=== PATIENT | female | born 1945 | race Caucasian/White ===

== ENCOUNTER 2020-12-02 10:03 | Outpatient (CLI) | payer MEDICARE, BC ==
[2020-12-02] MEDS ORDERED: NITR100C PO (10:36)
[2020-12-02] MEDS ORDERED: SPIR50TA4 PO (10:36)
[2020-12-02] MEDS ORDERED: GABA100C PO (10:36)
[2020-12-02] MEDS ORDERED: FOLI-17 PO (10:36)
[2020-12-02] MEDS ORDERED: AMLO-150 PO (10:36)
[2020-12-02 12:35] LABS: BASOPHILS % (AUTO) 1 % (0-1); EOSINOPHILS % (AUTO) 2 % (1-7); LYMPHOCYTES % (AUTO) 15 % (22-44); MEAN CORPUSCULAR HEMOGLOBIN 32.3 pg (27.0-34.8); MEAN CORPUSCULAR HGB CONC 33.7 g/dL (32.4-35.8); MEAN PLATELET VOLUME 9.7 fL (7.4-10.4); MONOCYTES % (AUTO) 9 % (2-9); NEUTROPHILS % (AUTO) 73 % (42-75); PLATELET COUNT 217 x10^3/uL (130-400); RED BLOOD COUNT 4.87 x10^6/uL (3.82-5.3); RED CELL DISTRIBUTION WIDTH 12.8 % (9.6-15.2)
[2020-12-02 12:40] LABS: INTERNATIONAL NORMALIZED RATIO 0.95 (0.93-1.1); PROTHROMBIN TIME 10.1 Seconds (9.6-11.5)
[2020-12-02 12:42] LABS: MD NO
[2020-12-02 12:44] LABS: ALANINE AMINOTRANSFERASE 32 U/L (12-78); ALBUMIN 4.2 g/dL (3.4-5.0); ANION GAP 3 mmol/L (5-15); CHLORIDE 104 mmol/L (98-107); CREATININE 1.94 mg/dL (0.55-1.02)
[2020-12-02 12:46] LABS: ALKALINE PHOSPHATASE 97 U/L (45-117); BILIRUBIN,TOTAL 0.4 mg/dL (0.2-1.0); TOTAL PROTEIN 7.4 g/dL (6.4-8.2)
[2020-12-02 13:41] LABS: MICROSCOPIC INDICATED
== END 2020-12-02 23:59 | disposition home or self-care (01) ==
LOC: STAR 10:03
PROVIDERS: ATTEND Urology
DX: Z01.812 Encounter for preprocedural laboratory examination (principal); Z20.828 Contact with and (suspected) exposure to other viral communicable diseases; N32.9 Bladder disorder, unspecified; R43.1 Parosmia; I44.7 Left bundle-branch block, unspecified
CPT/HCPCS: 80053; 81001; 85025; 85610; 87086; 87635; 93005

== ENCOUNTER 2020-12-08 13:33 | Day surgery (SDC) | payer MEDICARE, BC ==
[~2020-12-08] VITALS: Ht 162.6 cm; Wt 80.0 kg
[~2020-12-08 13:33] MED LIST: AMLO-150 PO; FOLI-17 PO; GABA100C PO; NITR100C PO; SPIR50TA4 PO
[2020-12-08] MEDS ORDERED: CHLORHEXIDINE 15 ML UDC ONE (14:07)
[2020-12-08] MEDS ORDERED: CEFAZOLIN 1,000 MG ONE (14:29)
[2020-12-08] MEDS ORDERED: ONDANSETRON 2MG/ML, 2ML ONE (14:29)
[2020-12-08] MEDS ORDERED: PROPOFOL 10 MG/ML, 20ML ONE (14:29)
[2020-12-08] MEDS ORDERED: FENTANYL PF 250 MCG/5ML ONE (14:29)
[2020-12-08] MEDS ORDERED: SODIUM CHLORIDE 0.9% 1,000 ML IV SCH ×2 (14:30)
[2020-12-08] MEDS ORDERED: LACTATED RINGERS 1,000 ML IV SCH (14:30)
[2020-12-08] MEDS ORDERED: CHLORHEXIDINE 15 ML UDC MM ONE (14:30)
[2020-12-08] MEDS ORDERED: OPIUM/BELLADONNA SUPP.RECT 16.2-60 MG ONE (15:25)
[2020-12-08] MEDS ORDERED: DEXAMETHASONE 4 MG/ML, 1ML ONE (15:38)
[2020-12-08] MEDS ORDERED: hydrALAzine 20 MG/ML, 1ML IV PRN (16:00)
[2020-12-08] MEDS ORDERED: ACETAMINOPHEN 325 MG TABLET PO PRN (16:00)
[2020-12-08] MEDS ORDERED: HYDROmorphone 1 MG/ML, 1ML INJ IVPush PRN (16:00)
[2020-12-08] MEDS ORDERED: PROMETHAZINE 25 MG/ML, 1ML IVPush PRN (16:00)
[2020-12-08] MEDS ORDERED: LIDOCAINE JELLY 2%, 30GM ONE (16:00)
[2020-12-08] MEDS ORDERED: LABETALOL 5MG/ML, 20ML IV PRN (16:00)
[2020-12-08] MEDS ORDERED: HALOPERIDOL 5 MG/ML IV PRN (16:00)
[2020-12-08] MEDS ORDERED: OXYcodone 5 MG/5 ML ORAL.SOL UDC PO PRN (16:00)
[2020-12-08] MEDS ORDERED: FENTANYL PF 100 MCG/2ML IV PRN (16:00)
[2020-12-08] MEDS ORDERED: OPIUM/BELLADONNA SUPP.RECT 16.2-30 MG ONE (16:43)
[2020-12-08] MEDS ORDERED: OPIUM/BELLADONNA SUPP.RECT 16.2-30 MG PR ONE (17:00)
== END 2020-12-08 18:05 | disposition home or self-care (01) ==
LOC: OR 13:33
PROVIDERS: ATTEND Urology
DX: N30.20 Other chronic cystitis without hematuria (principal); R39.15 Urgency of urination; R35.0 Frequency of micturition; I12.9 Hypertensive chronic kidney disease with stage 1 through stage 4 chronic kidney disease, or unspecified chronic kidney disease; N18.30 Chronic kidney disease, stage 3 unspecified; Z79.899 Other long term (current) drug therapy; Z87.891 Personal history of nicotine dependence; Z88.2 Allergy status to sulfonamides; Z88.8 Allergy status to other drugs, medicaments and biological substances
CPT/HCPCS: 52204; 88305; J0690; J1100; J2405; J2704; J3010; J7030; J7120